=== PATIENT | female | born 1970 | race Two or more races ===

== ENCOUNTER 2021-04-19 13:20 | Emergency (ER) | payer BC ==
[~2021-04-19] VITALS: Ht 142.2 cm; Wt 64.4 kg
[2021-04-19 13:32] VITALS: BP 120/81
--- NOTE | 2021-04-19 13:32 | NUR ---
BIBS FOR C/O RIGHT CHEST WALL AND RIGHT UPPER ARM PAIN 8/10 S/P TRIP AND FALL2 DAYS AGO. BREATHING IS EVEN AND UNLABORED. DR PINEDA AT BEDSIDE.
[2021-04-19] MEDS ORDERED: IBUP-1955 PO (13:37)
--- NOTE | 2021-04-19 13:43 | NUR ---
Patient discharged to home in stable condition. Written and verbal after care instructions given. Patient verbalizes understanding of instruction.
== END 2021-04-19 13:45 | disposition home or self-care (01) ==
LOC: ER 13:20
DX: R07.89 Other chest pain (principal); I10 Essential (primary) hypertension; Z79.1 Long term (current) use of non-steroidal anti-inflammatories (NSAID); W01.0XXA Fall on same level from slipping, tripping and stumbling without subsequent striking against object, initial encounter; Y93.89 Activity, other specified; Y92.89 Other specified places as the place of occurrence of the external cause; Y99.8 Other external cause status